=== PATIENT | male | born 1995 | race Caucasian/White ===

== ENCOUNTER 2016-06-13 23:44 | Emergency (ER) | payer OTHER ==
[~2016-06-13] VITALS: Ht 177.8 cm; Wt 68.1 kg
[2016-06-13 23:57] VITALS: Ht 177.8 cm; Wt 68.1 kg
[2016-06-14] MEDS ORDERED: CEPH-443 PO (01:45)
[2016-06-14] MEDS ORDERED: IBUP800T25 PO (01:45)
--- NOTE | 2016-06-14 01:50 | ERD ---
ER Documentation Chief Complaint Date/Time DATE: 06/14/16 TIME: 01:47 Chief Complaint took out something inside belly button x 1 hour ago, now c/o pain on site HPI There is a 20-year-old male who presents the emergency department today complaining that something came out of his belly button. Patient states that his bellybutton was itching when he stuck his finger in there he pulled hair out and there is some clear drainage from his bellybutton. Patient is concerned he pulled an animal out of his belly button. Denies any fevers or chills. ROS All systems reviewed and are negative except as per history of present illness. Medications Home Meds Active Scripts Ibuprofen* (Motrin*) 800 Mg Tab, 800 MG PO Q6, #30 TAB Prov:MIRTHA QUINONEZ PA-C 06/14/16 Cephalexin* (Keflex*) 500 Mg Capsule, 500 MG PO QID for 7 Days, CAP Prov:MIRTHA QUINONEZ PA-C 06/14/16 Allergies Allergies: Coded Allergies: sulfamethoxazole (Verified Allergy, Unknown, RASH, 06/13/16) trimethoprim (Verified Allergy, Unknown, RASH, 06/13/16) PMhx/Soc Hx Cardiac Disorders: Yes (TACHYCARDIA VALVE LEAKAGE) Hx Alcohol Use: No Hx Substance Use: No Hx Tobacco Use: No Smoking Status: Never smoker Physical Exam Vitals Vital Signs Date Time Temp Pulse Resp B/P Pulse Ox O2 Delivery O2 Flow Rate FiO2 06/13/16 23:57 97.1 63 20 117/60 99 Physical Exam Const: No acute distress Head: Atraumatic Eyes: Normal Conjunctiva ENT: Normal External Ears, Nose and Mouth. Neck: Full range of motion..~ No meningismus. Resp: Clear to auscultation bilaterally Cardio: Regular rate and rhythm, no murmurs Abd: Soft, non tender, non distended. Normal bowel sounds Skin: Evidence of 0.5 cm abscess inside umbilical area. Localized erythema. No evidence of purulent drainage. No evidence of cellulitis. Back: No midline or flank tenderness Ext: No cyanosis, or edema Neur: Awake and alert Psych: Normal Mood and Affect Procedures/MDM There is a 20-year-old male who presents to the emergency department today with concerns that something came out of his belly button. On physical exam there is a 0.5 cm small abscess inside the patient's umbilical area. There is no erythema or warmth. I have low suspicion for cellulitis or deep space tracking infection. Area was prepped in the usual sterile fashion. The area was unroofed with an 18-gauge needle. Patient tolerated procedure well and there were no complications. An incision and drainage is not necessary at this time. Patient is afebrile and otherwise well-appearing Patient was given a prescription for Keflex. He has allergies to Bactrim. I do not feel the patient requires clindamycin at this time. The area is very small. I did instruct the patient to return in 48 hours for a wound check or return sooner for any worsening of symptoms or fever. I do not see evidence of an animal in the patient's umbilical area. Patient was also given a prescription for Motrin. At this time the patient is stable for discharge and outpatient management. Patient should follow up with their PCP in the next 1-2 days. They may return to the emergency department sooner for any persistent or worsening of symptoms. Patient understood and agreed with the plan. Departure Diagnosis: Primary Impression: Abscess Condition: Fair Patient Instructions: Abscess, Antiobiotic Treatment Only Referrals: [facility] YOU HAVE RECEIVED A MEDICAL SCREENING EXAM AND THE RESULTS INDICATE THAT YOU DO NOT HAVE A CONDITION THAT REQUIRES URGENT TREATMENT IN THE EMERGENCY DEPARTMENT. FURTHER EVALUATION AND TREATMENT OF YOUR CONDITION CAN WAIT UNTIL YOU ARE SEEN IN YOUR DOCTORS OFFICE WITHIN THE NEXT 1-2 DAYS. IT IS YOUR RESPONSIBILITY TO MAKE AN APPOINTMENT FOR FOLOW-UP CARE. IF YOU HAVE A PRIMARY DOCTOR --you should call your primary doctor and schedule an appointment IF YOU DO NOT HAVE A PRIMARY DOCTOR YOU CAN CALL OUR PHYSICIAN REFERRAL HOTLINE AT IF YOU CAN NOT AFFORD TO SEE A PHYSICIAN YOU CAN CHOSE FROM THE FOLLOWING [facility] [address] [facility] [address] [facility] [address] [facility] [address] [facility] [address] [facility]. [facility] [address] Additional Instructions: Call your primary care doctor TOMORROW for an appointment during the next 1-2 days.See the doctor sooner or return here if your condition worsens before your appointment time. Wound check in 48 hours Keep wound clean Take antibiotics as prescribed Take Tylenol or Motrin for pain MIRTHA QUINONEZ PA-C Jun 14, 2016 01:50
== END 2016-06-14 02:00 | disposition home or self-care (01) ==
LOC: FTE 23:44
DX: L02.216 Cutaneous abscess of umbilicus (principal)
CPT/HCPCS: 99283

== ENCOUNTER 2016-12-12 23:28 | Emergency (ER) | payer OTHER ==
[~2016-12-12] VITALS: Ht 175.3 cm; Wt 65.9 kg
[~2016-12-12 23:28] MED LIST: CEPH-443 PO; IBUP800T25 PO
[2016-12-12 23:35] VITALS: Ht 175.3 cm; Wt 65.9 kg
[2016-12-13] MEDS ORDERED: ONDANSETRON (ODT) 4 MG TAB ODT STA (00:13)
[2016-12-13] MEDS ORDERED: ACETAMINOPHEN 500 MG TAB PO STA (00:13)
[2016-12-13] MEDS ORDERED: FAMOTIDINE 20 MG TAB PO ONE (00:30)
[2016-12-13 00:55] LABS: BASOPHIL # 0.1 10^3/ul (0.0-0.1); BASOPHILS % 0.5 % (0.0-2.0); EOSINOPHILS # 0.2 10^3/ul (0.0-0.5); EOSINOPHILS % 1.4 % (0.0-7.0); HEMATOCRIT 44.3 % (42.0-52.0); HEMOGLOBIN 14.8 g/dl (14.0-18.0); LYMPHOCYTES % 8.5 % (15.0-51.0); MEAN CORPUSCULAR HEMOGLOBIN 29.4 pg (29.0-33.0); MEAN CORPUSCULAR HGB CONC 33.4 g/dl (32.0-37.0); MEAN CORPUSCULAR VOLUME 87.9 fl (82.0-101.0); MEAN PLATELET VOLUME 9.9 fl (7.4-10.4); MONOCYTES % 8.2 % (0.0-11.0); NEUTROPHILS % 80.9 % (39.0-77.0); PLATELET COUNT 238 10^3/UL (140-415); RED BLOOD COUNT 5.04 10^6/ul (4.70-6.10); RED CELL DISTRIBUTION WIDTH 12.9 % (11.5-14.5); WHITE BLOOD COUNT 12.1 10^3/ul (4.8-10.8)
--- NOTE | 2016-12-13 01:00 | RADRPT ---
PROCEDURE: Portable chest x-ray. CLINICAL INDICATION: Shortness of breath. TECHNIQUE: Portable AP view of the chest. COMPARISON: None. FINDINGS: No pulmonary edema or conolidation is identified. The cardiac silhouette is magnified. No pleural effusion is seen. There is no pneumothorax. IMPRESSION: 1. No evidence of acute cardiopulmonary disease. RPTAT: HTAR .Matthias Neville MD, MD Date Time Electronically viewed and signed by .Matthias Neville MD, on 12/13/2016 01:00 .R/
[2016-12-13 01:14] LABS: ALBUMIN 4.7 g/dl (3.3-4.9); ALBUMIN/GLOBULIN RATIO 1.8; BILIRUBIN,INDIRECT 1.7 mg/dl (0-1.1); BILIRUBIN,TOTAL 1.7 mg/dl (0.2-1.3); CALCIUM 9.8 mg/dl (8.4-10.2); CREATININE 0.92 mg/dl (0.61-1.24); POTASSIUM 3.8 mmol/L (3.5-5.1); TOTAL PROTEIN 7.3 g/dl (6.1-8.1)
--- NOTE | 2016-12-13 01:26 | ERD ---
ER Documentation Chief Complaint Date/Time DATE: 12/13/16 TIME: 01:20 Chief Complaint EPIGASTRIC PAIN W/ NAUSEA AND DIARRHEA SINCE LAST NIGHT ROS All systems reviewed and are negative except as per history of present illness. Medications Home Meds Active Scripts Electrolyte,Oral (Pedialyte) 1,000 Ml Solution, 100 ML PO Q6 Y for DIARRHEA, # 1000 ML Prov:MIRTHA QUINONEZ-C 12/13/16 Acetaminophen* (Tylophen*) 500 Mg Capsule, 1 CAP PO Q6H Y for PAIN AND OR ELEVATED TEMP, #30 CAP Prov:MIRTHA QUINONEZC 12/13/16 Dicyclomine Hcl* (Bentyl*) 10 Mg Capsule, 10 MG PO QID, #30 CAP Prov:MIRTHA QUINONEZC 12/13/16 Ondansetron Hcl* (Zofran*) 4 Mg Tablet, 4 MG PO Q6H for NAUSEA AND/OR VOMITING, #30 TAB Prov:MIRTHA QUINONEZC 12/13/16 Famotidine* (Pepcid*) 20 Mg Tablet, 20 MG PO BID for 10 Days, TAB Prov:MIRTHA QUINONEZC 12/13/16 Ibuprofen* (Motrin*) 800 Mg Tab, 800 MG PO Q6, #30 TAB Prov:MIRTHA QUINONEZC 06/14/16 Cephalexin* (Keflex*) 500 Mg Capsule, 500 MG PO QID for 7 Days, CAP Prov:MIRTHA QUINONEZC 06/14/16 Allergies Allergies: Coded Allergies: sulfamethoxazole (Verified Allergy, Unknown, RASH, 06/13/16) trimethoprim (Verified Allergy, Unknown, RASH, 06/13/16) PMhx/Soc Medical and Surgical Hx: pt denies Medical Hx, pt denies Surgical Hx Hx Cardiac Disorders: Yes (TACHYCARDIA VALVE LEAKAGE) Hx Alcohol Use: No Hx Substance Use: No Hx Tobacco Use: No Smoking Status: Never smoker Physical Exam Vitals Vital Signs Date Time Temp Pulse Resp B/P Pulse Ox O2 Delivery O2 Flow Rate FiO2 12/12/16 23:35 97.0 69 18 133/80 99 Physical Exam Const: No acute distress Head: Atraumatic Eyes: Normal Conjunctiva ENT: Normal External Ears, Nose and Mouth. Neck: Full range of motion..~ No meningismus. Resp: Clear to auscultation bilaterally Cardio: Regular rate and rhythm, no murmurs Abd: Soft, epigastric tenderness, non distended. Normal bowel sounds. No right upper quadrant tenderness. No tenderness McBurney Skin: No petechiae or rashes Back: No midline or flank tenderness Ext: No cyanosis, or edema Neur: Awake and alert Psych: Normal Mood and Affect Result Diagram: 12/13/165 12/13/16 0025 Results 24 hrs Laboratory Tests Test 12/13/16 00:25 12/13/16 01:39 White Blood Count 12.110^3/ul Red Blood Count 5.0410^6/ul Hemoglobin 14.8g/dl Hematocrit 44.3% Mean Corpuscular Volume 87.9fl Mean Corpuscular Hemoglobin 29.4pg Mean Corpuscular Hemoglobin Concent 33.4g/dl Red Cell Distribution Width 12.9% Platelet Count 24175^3/UL Mean Platelet Volume 9.9fl Neutrophils % 80.9% Lymphocytes % 8.5% Monocytes % 8.2% Eosinophils % 1.4% Basophils % 0.5% Nucleated Red Blood Cells % 0.0/100WBC Neutrophils # (Manual) 1010^3/ul Lymphocytes # 1.010^3/ul Monocytes # 1.010^3/ul Eosinophils # 0.210^3/ul Basophils # 0.110^3/ul Nucleated Red Blood Cells # 0.010^3/ul Sodium Level 144mmol/L Potassium Level 3.8mmol/L Chloride Level 101mmol/L Carbon Dioxide Level 26mmol/L Anion Gap 21 Blood Urea Nitrogen 16mg/dl Creatinine 0.92mg/dl Glucose Level 92mg/dl Calcium Level 9.8mg/dl Total Bilirubin 1.7mg/dl Direct Bilirubin 0.00mg/dl Indirect Bilirubin 1.7mg/dl Aspartate Amino Transf (AST/SGOT) 26IU/L Alanine Aminotransferase (ALT/SGPT) 42IU/L Alkaline Phosphatase 105IU/L Total Protein 7.3g/dl Albumin 4.7g/dl Globulin 2.60g/dl Albumin/Globulin Ratio 1.80 Lipase 115U/L Bedside Urine pH (LAB) 5.5 Bedside Urine Protein (LAB) Negative Bedside Urine Glucose (UA) Negative Bedside Urine Ketones (LAB) Negative Bedside Urine Blood Negative Bedside Urine Nitrite (LAB) Negative Bedside Urine Leukocyte Esterase (L Negative Current Medications Medications (Trade) Dose Ordered Sig/Gretchen Route PRN Reason Start Time Stop Time Status Last Admin Dose Admin Famotidine (Pepcid) 20 mg ONCE ONCE PO 12/13/16 00:30 12/13/16 00:31 DC 12/13/16 00:24 Ondansetron HCl (Zofran Odt) 4 mg ONCE STAT ODT 12/13/16 00:13 12/13/16 00:16 DC 12/13/16 00:24 Acetaminophen (Tylenol Tab) 500 mg ONCE STAT PO 12/13/16 00:13 12/13/16 00:16 DC 12/13/16 00:24 DIAGNOSTIC IMAGING REPORT Patient: NAYA GUAN : 1995 Age: 21 Sex: M MR #: [id number] DOS: 12/13/16 0000 Ordering MD: MIRTAH QUINONEZ PA-C Location: [facility] Room/Bed: PROCEDURE: Portable chest x-ray. CLINICAL INDICATION: Shortness of breath. TECHNIQUE: Portable AP view of the chest. COMPARISON: None. FINDINGS: No pulmonary edema or conolidation is identified. The cardiac silhouette is magnified. No pleural effusion is seen. There is no pneumothorax. IMPRESSION: 1. No evidence of acute cardiopulmonary disease. RPTAT: HTAR .Matthias Neville MD, MD Date Time Electronically viewed and signed by .Matthias Neville MD, MD on 12/13/2016 01:00 .R/ CC: MIRTHA QUINONEZ PA-C Procedures/MDM Is a 21-year-old male who presents to the emergency department today with multiple complaints Laboratory workup shows a very mildly elevated white blood cell count. He is not anemic. Platelets are within normal limits. Electrolytes are within normal limits. Glucose within normal limits. Liver enzymes were normal limits. Bilirubin is mildly elevated. Lipase is within normal limits. Patient has no right upper quadrant pain and no right lower quadrant pain of low suspicion for acute appendicitis, acute cholecystitis. Discussed the mildly elevated bilirubin with Dr. Parada he feels it may be related to viral infection especially given patient has normal liver enzymes and no right upper quadrant pain on physical exam. He does not feel the patient requires further workup at this time. UA negative for infection Chest x-ray shows no evidence of acute cardiopulmonary disease. There is no pulmonary edema or consolidation. There is no pleural effusion, pneumothorax. Low suspicion for pneumonia, PE, abscess EKG read and interpreted by Dr. Parada rate [address] elevation. No QT prolongation. Normal sinus rhythm. Low suspicion for acute PA, PE, pericarditis. Patient's multiple complaints of aches, diarrhea and nausea related to gastroenteritis possibly viral. Patient is afebrile and otherwise well- appearing. Low suspicion for sepsis, meningitis, serious acute bacterial infection. Do not feel the patient requires antibiotics at this time. Patient was given Zofran, Pepcid, Tylenol here in the emergency room. Patient given a prescription for Zofran, Pepcid, pedialyte, Tylenol and Bentyl for home At this time the patient is stable for discharge and outpatient management. Patient should follow up with their PCP in the next 1-2 days. They may return to the emergency department sooner for any persistent or worsening of symptoms. Patient understood and agreed with the plan. Departure Diagnosis: Primary Impression: Multiple complaints Condition: MIRTHA Tierney PA-C Dec 13, 2016 01:26
[2016-12-13 01:33] LABS: URINE BLOOD (Dip) POC Negative (NEGATIVE)
[2016-12-13] MEDS ORDERED: FAMO-96 PO (01:38)
[2016-12-13] MEDS ORDERED: ONDA4TAB8 PO (01:38)
[2016-12-13] MEDS ORDERED: DICY10CA60 PO (01:39)
[2016-12-13] MEDS ORDERED: ACET500C5 PO (01:39)
[2016-12-13] MEDS ORDERED: ELEC100080 PO (01:41)
[2016-12-13 01:49] VITALS: BP 124/75; PULSE 81; RESP 18; TEMP 98.1
== END 2016-12-13 01:50 | disposition home or self-care (01) ==
LOC: FTE 23:28
DX: R10.13 Epigastric pain (principal); R11.0 Nausea; R19.7 Diarrhea, unspecified; D72.829 Elevated white blood cell count, unspecified
CPT/HCPCS: 36415; 71010; 80053; 81003; 83690; 85025; 93005; Z7502; Z7610